=== PATIENT | male | born 1965 | race Two or more races ===

== ENCOUNTER 2017-01-22 18:55 | Emergency (ER) | payer OTHER ==
[~2017-01-22] VITALS: Ht 170.2 cm; Wt 88.3 kg
[2017-01-22] MEDS ORDERED: METOCLOPRAMIDE 5 MG/ML, 2ML IVPush ONE (20:00)
[2017-01-22] MEDS ORDERED: SODIUM CHLORIDE FLUSH 10ML SYR IVF ONE (20:00)
[2017-01-22] MEDS ORDERED: DEXAMETHASONE 4 MG/ML, 1ML IVPush ONE (20:00)
[2017-01-22] MEDS ORDERED: SODIUM CHLORIDE 0.9% 1,000ML IVBOLUS ONE (20:00)
[2017-01-22] MEDS ORDERED: DIPHENHYDRAMINE 50 MG/ML, 1ML IVPush ONE (20:00)
[2017-01-22] MEDS ORDERED: DIPHENHYDRAMINE 50 MG/ML, 1ML ONE (20:07)
[2017-01-22] MEDS ORDERED: DEXAMETHASONE 4 MG/ML, 5ML ONE (20:07)
[2017-01-22] MEDS ORDERED: METOCLOPRAMIDE 5 MG/ML, 2ML ONE (20:07)
[2017-01-22 20:58] VITALS: BP 132/81
== END 2017-01-22 22:03 | disposition home or self-care (01) ==
LOC: ED 21:57
DX: R51 Headache (principal); M54.2 Cervicalgia
CPT/HCPCS: 96361; 96374; 96375; 99284; J1100; J1200; J2765; J7030